=== PATIENT | female | born 1975 | race Caucasian/White ===

== ENCOUNTER 2020-06-02 16:05 | Emergency (ER) | payer MEDICAID ==
[~2020-06-02] VITALS: Ht 170.2 cm; Wt 81.6 kg
[2020-06-02 16:19] VITALS: BP 162/94
--- NOTE | 2020-06-02 16:59 | NUR ---
COVID SWAB SENT TO LAB.
[2020-06-02 17:00] VITALS: BP 162/94
--- NOTE | 2020-06-02 17:00 | NUR ---
Patient discharged with v/s stable. Written and verbal after care instructions given and explained. Patient alert, oriented and verbalized understanding of instructions. Ambulatory with steady gait. All questions addressed prior to discharge. ID band removed. Patient advised to follow up with PMD. Rx of IBUPROFEN & PROMETHAZINE given. Patient educated on indication of medication including possible reaction and side effects. Opportunity to ask questions provided and answered.
--- NOTE | 2020-06-02 17:20 | NUR ---
COVID SWAB SENT TO LAB.
--- NOTE | 2020-06-02 17:45 | NUR ---
Note pablitotaina in EDM - 06/02/20 at 1745 by [facility] Patient discharged with v/s stable. Written and verbal after care instructions given and explained. Patient alert, oriented and verbalized understanding of instructions. Ambulatory with steady gait. All questions addressed prior to discharge. ID band removed. Patient advised to follow up with PMD. Rx of IBUPROFEN & PROMETHAZINE given. Patient educated on indication of medication including possible reaction and side effects. Opportunity to ask questions provided and answered.
--- NOTE | 2020-06-04 08:35 | NUR ---
Covid results received from lab. Results = INDETERMINATE. Hard copy requested from lab and placed in infection controls mailbox.
== END 2020-06-02 17:45 | disposition home or self-care (01) ==
LOC: MED 16:05
DX: F17.210 Nicotine dependence, cigarettes, uncomplicated (principal); Z90.49 Acquired absence of other specified parts of digestive tract; Z20.828 Contact with and (suspected) exposure to other viral communicable diseases
CPT/HCPCS: 99283; U0003

== ENCOUNTER 2022-04-12 08:02 | Emergency (ER) | payer BC, MEDICAID ==
[~2022-04-12] VITALS: Ht 170.2 cm; Wt 94.8 kg
[2022-04-12 08:09] VITALS: BP 122/75
--- NOTE | 2022-04-12 08:16 | NUR ---
DR QUINONES AT [facility].
--- NOTE | 2022-04-12 08:20 | NUR ---
46 Y/O F BIB SELF C/O LOWER BACK PAIN 04/08 STARTED YESTERDAY. PER PT THE PAIN IS MORE ON HER L LOWER SIDE AND RADIATES TO HER L LEG AND IT SPASMS. PT ALSO C/O OF DARK URINE, DYSURIA. PT STATED SHE WAS MOVING BOXES YESTERDAY. [facility] OR [facility]
[2022-04-12] MEDS ORDERED: LIDOCAINE 5% 1 EA PATCH TP STA (08:21)
[2022-04-12] MEDS ORDERED: NACL 0.9% 1,000 ML IV ONE (08:25)
[2022-04-12] MEDS ORDERED: MORPHINE SULFATE 4 MG/ML SYR IVP ONE (08:25)
--- NOTE | 2022-04-12 08:30 | NUR ---
LAB AT BEDSIDE.
[2022-04-12 08:44] LABS: BASOPHILS % (AUTO) 0.5 % (0.0-2.0); EOSINOPHILS # (AUTO) 0.2 K/uL (0-0.4); EOSINOPHILS % (AUTO) 2.6 % (0.0-4.0); HEMATOCRIT 33.1 % (36-48); LYMPHOCYTES # (AUTO) 1.1 K/uL (2.5-16.5); LYMPHOCYTES % (AUTO) 19.5 % (20.5-51.1); MEAN CORPUSCULAR HEMOGLOBIN 27 pg (27-31); MEAN CORPUSCULAR HGB CONC 33 g/dL (33-37); MONOCYTES # (AUTO) 0.6 K/uL (0.8-1.0); MONOCYTES % (AUTO) 9.7 % (1.7-9.3); NEUTROPHILS % (AUTO) 67.7 % (42.2-75.2); PLATELET COUNT (AUTO) 254 K/uL (140-450); RED BLOOD CELL COUNT(AUTO) 4.14 MIL/uL (4.20-5.40); RED CELL DISTRIBUTION WIDTH 17.2 % (11.6-13.7); WHITE BLOOD COUNT (AUTO) 5.9 K/uL (4.8-10.8)
[2022-04-12 09:06] LABS: ALBUMIN 3.4 g/dL (3.4-5.0); ANION GAP 14.5 (8-16); CARBON DIOXIDE 25.7 mmol/L (21-32); CREATININE 0.9 mg/dL (0.6-1.3); POTASSIUM 4.2 mmol/L (3.5-5.1); TOTAL BILIRUBIN 0.6 mg/dL (0.0-1.0)
--- NOTE | 2022-04-12 09:34 | NUR ---
PT TO CT BY WHEELCHAIR.
[2022-04-12 10:26] LABS: APPEARANCE,URINE SL CLOUDY (CLEAR); BILIRUBIN,URINE NEGATIVE (NEGATIVE); BLOOD, URINE NEGATIVE (NEGATIVE); COLOR,URINE YELLOW (YELLOW); LEUKOCYTE ESTERASE ,URINE TRACE (NEGATIVE); NITRITE, URINE NEGATIVE (NEGATIVE); UGLUCOSE NEGATIVE (NEGATIVE)
[2022-04-12 10:38] LABS: FINE GRANULAR CASTS,URINE 0-10 /LPF (None Seen)
[2022-04-12] MEDS ORDERED: CEPH-588 PO (10:52)
[2022-04-12] MEDS ORDERED: IBUP-2213 PO (10:53)
[2022-04-12] MEDS ORDERED: LID5T TP (10:54)
[2022-04-12] MEDS ORDERED: ACET-10509 PO (10:54)
--- NOTE | 2022-04-12 11:05 | NUR ---
Patient discharged with v/s stable. Written and verbal after care instructions given and explained. Patient alert, oriented and verbalized understanding of instructions. Ambulatory with steady gait. All questions addressed prior to discharge. ID band removed. Patient advised to follow up with PMD. Rx of ACETAMONOPHEN TAB. CEPHALEXIN, LIDOCAINE HYD given. Opportunity to ask questions provided and answered.
[2022-04-12 11:06] VITALS: BP 135/73
--- NOTE | 2022-04-12 11:08 | NUR ---
Chart checked and completed. The patient's care was reviewed and supervised by Stephanie Fiore RN.
== END 2022-04-12 11:05 | disposition home or self-care (01) ==
LOC: MED 08:02
DX: N12 Tubulo-interstitial nephritis, not specified as acute or chronic (principal); N94.89 Other specified conditions associated with female genital organs and menstrual cycle; N88.9 Noninflammatory disorder of cervix uteri, unspecified; Z79.899 Other long term (current) drug therapy
CPT/HCPCS: 36415; 74177; 80053; 81001; 81025; 85025; 87086; 96361; 96374; 99285; J2270; J7030; Q9967